=== PATIENT | male | born 2000 | race Caucasian/White ===

== ENCOUNTER 2024-03-27 21:55 | Emergency (ER) | payer OTHER ==
[2024-03-27 22:20] LABS: BASOPHILS ABSOLUTE AUTO 0.1 x10-3/uL (0.0-0.3); EOSINOPHILS ABSOLUTE AUTO 0.1 x10-3/uL (0.0-0.6); HEMATOCRIT 47.5 % (38.3-50.1); HEMOGLOBIN 17.4 g/dL (12.9-17.7); LYMPHOCYTES ABSOLUTE AUTO 2.5 x10-3/uL (0.5-4.5); LYMPHOCYTES PERCENT AUTO 24.1 % (15.8-45.3); MEAN CORPUSCULAR HGB CONC 36.6 g/dL (28.7-35.3); MEAN CORPUSCULAR VOLUME 90.2 fL (80.8-98.7); MEAN PLATELET VOLUME 8.7 fL (6.7-11.0); MONOCYTES ABSOLUTE AUTO 0.7 x10-3/uL (0.0-1.2); MONOCYTES PERCENT AUTO 6.6 % (5.5-15.2); NEUTROPHILS ABSOLUTE AUTO 6.9 x10-3/uL (1.7-6.9); NEUTROPHILS PERCENT AUTO 67.3 % (40.3-71.8); PLATELET COUNT,PLT 221 x10(3)uL (117-477); RED BLOOD CELL COUNT 5.26 x10(6)uL (3.90-5.90); RED CELL DISTRIBUTION WIDTH 12.8 % (12.4-15.0); WHITE BLOOD CELL COUNT,WBC 10.2 x10-3/uL (3.2-10.1)
[2024-03-27] MEDS: Aspirin 81 MG Tab.Chew PO ONE (22:22)
[2024-03-27 22:24] LABS: BLOOD UREA NITROGEN,BUN 18 mg/dL (7-18); CARBON DIOXIDE,CO2 21 mmol/L (21-32); CHLORIDE,CL 104 mmol/L (100-110); CREATININE 1.2 mg/dL (0.70-1.30); EST CRCL DRUG DOSING (CG) 87.54 mL/min; ESTIMATED GFR 86 mL/min (>60); GLUCOSE RANDOM 113 mg/dL (80-116); POTASSIUM,K 3.2 mmol/L (3.5-5.3); SODIUM,NA 140 mmol/L (135-145)
[2024-03-27 22:30] LABS: A/G RATIO 1.5; ALANINE AMINOTRANSFERASE,ALT 22 U/L (12-36); ALBUMIN 4.6 g/dL (3.5-5.2); ALKALINE PHOSPHATASE 114 IU/L (56-112); ASPARTATE AMNIOTRANSFERASE,AST 15 IU/L (5-25); BILIRUBIN TOTAL 2.3 mg/dL (0.1-1.3); PROTEIN TOTAL,TP 7.6 g/dL (6.0-8.0)
[2024-03-27] MEDS ORDERED: Ondansetron 4 MG Tab.DIS PO ONE (22:30)
[2024-03-27 22:36] LABS: PRO B-TYPE NATRIUR PEPT,BNPPRO 57 pg/mL (<=125)
[2024-03-27 22:37] LABS: TROPONIN I < 4.0 pg/mL (4.0-60.3)
[2024-03-27] MEDS: Potassium Chloride 20 MEQ Tab.ER PO ONE (22:45)
== END 2024-03-27 23:57 ==
LOC: FB.ED 21:55
DX: J93.9 Pneumothorax, unspecified (principal); R06.9 Unspecified abnormalities of breathing; Z79.899 Other long term (current) drug therapy
CPT/HCPCS: 36415; 71045; 80053; 83880; 84484; 85025; 93005; 99285; A9270-GY